=== PATIENT | male | born 1975 | race Caucasian/White ===

== ENCOUNTER 2023-12-01 18:31 | Observation (INO) ==
[2023-12-01 19:53] LABS: ABS Eosinophils 0.2 10^3/uL (0.0-0.5); ABS Lymphocytes 1.9 10^3/uL (1.0-4.8); ABS Monocytes 0.5 10^3/uL (0.0-1.1); ABS Neutrophils 3.4 10^3/uL (1.5-7.6); ABS Nucleated RBC 0.01 10^3/ul; Hematocrit 38.1 % (38-53); Hemoglobin 13.7 g/dL (13.2-16.3); Mean Corpuscular Hemoglobin 30.5 pg (27-33); Mean Corpuscular Hgb Conc 35.8 g/dL (31-36); Mean Platelet Volume 7.1 fL (7.5-11.2); Nucleated Red Blood Cells % 0.1 %/100WBC (0.0-0.8); Platelet Count 270 10^3/uL (150-450); Red Blood Count 4.48 10^6/uL (4.06-5.63); Red Cell Distribution Width 13.7 % (12-17); White Blood Count 6.1 10^3/uL (3.6-10.2)
[2023-12-01 20:25] LABS: Albumin 4.6 g/dL (3.2-5.2); Albumin/Globulin Ratio 1.8 (1-3); C Reactive Protein 63.22 mg/L (<8.01); Calcium 9.2 mg/dL (8.6-10.3); Creatinine, Serum 0.9 mg/dL (0.67-1.17); Globulin 2.6 g/dL (2-4); Potassium 4.1 mmol/L (3.5-5.0); Total Bilirubin 0.5 mg/dL (0.2-1.0); Total Protein 7.2 g/dL (6.4-8.9)
[2023-12-01] MEDS: ceFAZolin 2 GM PREMIX 2 GM/50 ML BAG IV ONE (21:19)
[2023-12-02] MEDS: ceFAZolin 2 GM PREMIX 2 GM/50 ML BAG IV SCH (04:49)
[2023-12-02] MEDS ORDERED: ceFAZolin 2 GM in NS PREMIX 2 GM/100 ML BAG IVPB SCH (05:00)
[2023-12-02 05:06] LABS: ABS Eosinophils 0.2 10^3/uL (0.0-0.5); ABS Lymphocytes 1.8 10^3/uL (1.0-4.8); ABS Monocytes 0.6 10^3/uL (0.0-1.1); ABS Neutrophils 2.4 10^3/uL (1.5-7.6); ABS Nucleated RBC 0.01 10^3/ul; Hematocrit 36.9 % (38-53); Hemoglobin 13.2 g/dL (13.2-16.3); Lymphocyte % 35.8 %; Mean Corpuscular Hemoglobin 30.7 pg (27-33); Mean Corpuscular Hgb Conc 35.8 g/dL (31-36); Mean Corpuscular Volume 85.7 fL (80-97); Mean Platelet Volume 7.1 fL (7.5-11.2); Nucleated Red Blood Cells % 0.3 %/100WBC (0.0-0.8); Platelet Count 249 10^3/uL (150-450); Red Cell Distribution Width 13.7 % (12-17); White Blood Count 5.1 10^3/uL (3.6-10.2)
[2023-12-02 05:56] LABS: Calcium 8.7 mg/dL (8.6-10.3); Creatinine, Serum 0.96 mg/dL (0.67-1.17); Potassium 4.7 mmol/L (3.5-5.0); eGFR CKD-EPI 98.1 (>60)
[2023-12-02] MEDS: buPROPion SR 100 mg TAB.SR PO SCH (08:54)
[2023-12-02] MEDS: Vancomycin 1,500 MG in NS 0.9% 250 ml 250 ML IVPB ONE (08:54)
[2023-12-02] MEDS ORDERED: Vancomycin per Pharmacy 1 EA NOTE FOLLOW UP SCH (09:00)
[2023-12-02 11:57] VITALS: BP 123/77
[2023-12-05 15:57] LABS: IgG Immunoblot Negative (Negative); IgM Immunoblot Positive (Negative)
== END 2023-12-02 11:57 | disposition home or self-care (01) ==
LOC: ED 18:31 → EDHOLD 18:31 → SUATTDRO 22:06 → EDHOLD 12-02 11:56
PROVIDERS: ADMIT Internal Medicine; ATTEND Internal Medicine